=== PATIENT | male | born 1975 | race Caucasian/White ===

== ENCOUNTER 2020-04-24 08:31 | Outpatient (CLI) | payer OTHER ==
--- NOTE | 2020-04-24 10:01 | ULT ---
HEPATIC ULTRASOUND WITH PRINCE SCALE AND COLOR FLOW AND SPECTRAL DOPPLER IMAGING: Date: 04/24/2020 HISTORY: 45-year-old male with chronic hepatitis C. FINDINGS: The liver demonstrates homogeneous echotexture without focal mass or intrahepatic ductal dilatation. The spleen is mildly enlarged measuring 13.5 cm. No gallstones, gallbladder wall thickening, or peric holecystic fluid is seen. The common duct measures 3.0 mm in diameter. The pancreas is normal. No denzel e fluid is seen. There is normal flow and spectral waveforms in the hepatic, portal, and splenic vasculature. IMPRESSION: Mild splenomegaly, otherwise unremarkable exam. POS: OFF
== END 2020-04-24 08:32 | disposition home or self-care (01) ==
LOC: BICULT 08:31
PROVIDERS: ATTEND Internal Medicine Gastroenterology
DX: B18.2 Chronic viral hepatitis C (principal); R94.5 Abnormal results of liver function studies; R16.1 Splenomegaly, not elsewhere classified
CPT/HCPCS: 76705